=== PATIENT | female | born 1985 | race Caucasian/White ===

== ENCOUNTER 2017-07-13 14:43 | Emergency (ER) | payer OTHER ==
[~2017-07-13] VITALS: Ht 167.6 cm; Wt 84.8 kg
[~2017-07-13 14:43] MED LIST: ANAPROX DS550 MG PO; BACTRIM DS 8001 TA1 PO; Bactrim Ds 8001 TAB PO; CIPRO250 MG PO; DIFLUCAN150 MG PO; FLEXERIL10 MG PO; KEFLEX500 MG PO; LOMOTIL 0.025 M1 TA1 PO; MOTRIN800 MG PO; NORCO 325 MG-51 TAB PO; PEPTO-BISM262 MG/11 PO; PYRIDIUM200 M1 PO; PYRIDIUM200 MG PO; VICODIN 500 MG-1 TAB PO; XANAX0.5 MG PO; ZOFRAN ODT4 MG PO; ZOFRAN ODT4 MG SL; ZOLOFT100 MG PO
[2017-07-13 15:14] LABS: BILIRUBIN NEGATIVE (NEGATIVE); BLOOD 1+ (NEGATIVE); CLARITY SL CLOUDY (CLEAR); COLOR YELLOW (YELLOW); GLUCOSE NEGATIVE (NEGATIVE); KETONE NEGATIVE (NEGATIVE); LEUKO ESTERASE NEGATIVE (NEGATIVE); NITRITE NEGATIVE (NEGATIVE); PH 5.5 (5.0-9.0); SPECIFIC GRAVITY 1.025 (1.005-1.030); UROBILINOGEN 0.2 E.U./dl (0.2-1.0)
[2017-07-13 15:27] LABS: BACTERIA 1+; MUCOUS 2+
[2017-07-13 15:51] LABS: BASO # 0.1 10*3/uL (0.0-0.1); BASO % 0.8 % (0.0-1.0); EOS # 0.3 10*3/uL (0.0-0.4); EOS % 3.5 % (1.0-4.0); HEMOGLOBIN 12.4 g/dl (12.0-16.0); LYMPH # 1.9 10*3/uL (1.3-4.4); LYMPH % 26.1 % (27.0-41.0); MEAN CELL VOLUME 86.4 fl (81.0-99.0); MEAN CORPUSCULAR HGB CONC 33.5 g/dl (33.0-37.0); MEAN PLATELET VOLUME 10.6 fl (9.6-12.3); MONO # 0.5 10*3/uL (0.1-1.0); MONO % 6.3 % (3.0-9.0); NEUT # 4.7 10*3/uL (2.3-7.9); PLATELET COUNT AUTOMATED 258 10*3/uL (130-400); RED BLOOD COUNT 4.28 10*6/uL (4.10-5.10); RED CELL DISTRI WIDTH 12.6 % (0-14.5); WHITE BLOOD COUNT 7.4 10*3/uL (4.8-10.8)
[2017-07-13 16:02] LABS: ALBUMIN 3.9 gm/dl (3.1-4.5); ALKALINE PHOSPHATASE 54 U/L (45-117); BUN 5 mg/dl (7-24); CHLORIDE 106 mmol/L (98-107); CREATININE 0.67 mg/dL (0.55-1.02); LIPASE 145 U/L (73-393); POTASSIUM 3.9 mmol/L (3.5-5.1); SGOT/AST 16 IU/L (3-35); SGPT/ALT 17 U/L (12-78); SODIUM 139 mmol/L (136-145); TOTAL PROTEIN 7.4 gm/dL (6.4-8.2)
[2017-07-13 18:12] VITALS: BP 110/70
[2017-07-13] MEDS ORDERED: PROTONIX40 MG PO (18:16)
== END 2017-07-13 18:23 | disposition home or self-care (01) ==
LOC: ED 14:43
PROVIDERS: Emergency Medicine; Nurse Practitioner Family
DX: K29.00 Acute gastritis without bleeding (principal); Z90.49 Acquired absence of other specified parts of digestive tract

== ENCOUNTER → 2017-07-22 | Outpatient (CLI) | payer OTHER ==
[~2017-07-22] MED LIST changes: +PROTONIX40 MG PO
== END | disposition home or self-care (01) ==
LOC: RAD 16:19
DX: J40 Bronchitis, not specified as acute or chronic (principal)

== ENCOUNTER 2017-08-31 23:56 | Emergency (ER) | payer OTHER ==
[~2017-08-31] VITALS: Ht 165.1 cm; Wt 86.2 kg
[2017-09-01 00:04] VITALS: BP 137/97
[2017-09-01 00:43] LABS: BASO # 0.1 10*3/uL (0.0-0.1); BASO % 0.9 % (0.0-1.0); EOS # 0.5 10*3/uL (0.0-0.4); HEMATOCRIT 36.9 % (37.0-47.0); HEMOGLOBIN 12.2 g/dl (12.0-16.0); LYMPH # 2.6 10*3/uL (1.3-4.4); LYMPH % 28.9 % (27.0-41.0); MEAN CELL VOLUME 84.6 fl (81.0-99.0); MEAN CORPUSCULAR HGB CONC 33.1 g/dl (33.0-37.0); MEAN PLATELET VOLUME 10.8 fl (9.6-12.3); MONO # 0.6 10*3/uL (0.1-1.0); MONO % 7.2 % (3.0-9.0); NEUT # 5.2 10*3/uL (2.3-7.9); NEUT % 57.7 % (47.0-73.0); PLATELET COUNT AUTOMATED 298 10*3/uL (130-400); RED BLOOD COUNT 4.36 10*6/uL (4.10-5.10); RED CELL DISTRI WIDTH 12.8 % (0-14.5); WHITE BLOOD COUNT 8.9 10*3/uL (4.8-10.8)
[2017-09-01 00:57] LABS: BUN 11 mg/dl (7-24); CHLORIDE 108 mmol/L (98-107); CREATININE 0.73 mg/dL (0.55-1.02); POTASSIUM 3.7 mmol/L (3.5-5.1); SODIUM 142 mmol/L (136-145)
[2017-09-01] MEDS ORDERED: ZITHROMAX250 MG PO (01:42)
[2017-09-01] MEDS ORDERED: ROBITUSSIN DM 105 ML PO (01:42)
[2017-09-01] MEDS ORDERED: PREDNISONE10 MG PO (01:42)
[2017-09-01] MEDS ORDERED: PROAIR HFA8.5 GM INH (01:42)
== END 2017-09-01 02:06 | disposition home or self-care (01) ==
LOC: ED 23:56
PROVIDERS: Emergency Medicine Emergency Medical Services
DX: J20.9 Acute bronchitis, unspecified (principal); Z79.899 Other long term (current) drug therapy

== ENCOUNTER → 2018-06-08 | Outpatient (CLI) | payer OTHER ==
[~2018-06-08] MED LIST changes: +AMINOPHYLLIN200 MG PO; +AUGMENTIN 875875 MG PO; +BELVIQ10 M1 PO; +CLARITIN5 MG/5 ML PO; +DIPHENHYDRAMINE50 M1 PO; +Motrin,Rufen800 MG PO; +POLYTRIM 1000010 M1 OPH; +PREDNISONE10 MG PO; +PROAIR HFA8.5 GM INH; +PSEUDOEPHEDRINE60 MG PO; +ROBITUSSIN DM 105 ML PO; +ZITHROMAX250 MG PO; +ZYRTEC10 MG PO
== END | disposition home or self-care (01) ==
LOC: RAD 08:00 → US 09:30 → RAD 11:44
DX: K44.9 Diaphragmatic hernia without obstruction or gangrene (principal); R13.12 Dysphagia, oropharyngeal phase; J98.4 Other disorders of lung; E04.1 Nontoxic single thyroid nodule

== ENCOUNTER 2018-06-09 08:19 | Emergency (ER) | payer OTHER ==
[~2018-06-09] VITALS: Ht 165.1 cm; Wt 88.5 kg
[~2018-06-09 08:19] MED LIST changes: -AMINOPHYLLIN200 MG PO; -AUGMENTIN 875875 MG PO; -BELVIQ10 M1 PO; -CLARITIN5 MG/5 ML PO; -DIPHENHYDRAMINE50 M1 PO; -Motrin,Rufen800 MG PO; -POLYTRIM 1000010 M1 OPH; -PSEUDOEPHEDRINE60 MG PO; -ZYRTEC10 MG PO
[2018-06-09 08:21] VITALS: BP 139/89
[2018-06-09] MEDS ORDERED: DIPHENHYDRAMINE50 M1 PO (08:39)
[2018-08-28] MEDS ORDERED: AMINOPHYLLIN200 MG PO (17:08)
== END 2018-06-09 08:42 | disposition home or self-care (01) ==
LOC: ED 08:19
DX: T63.481A Toxic effect of venom of other arthropod, accidental (unintentional), initial encounter (principal); R51 Headache; R11.0 Nausea; Z90.49 Acquired absence of other specified parts of digestive tract; Z79.899 Other long term (current) drug therapy; Y92.89 Other specified places as the place of occurrence of the external cause

== ENCOUNTER 2018-07-08 04:31 | Emergency (ER) | payer OTHER ==
[~2018-07-08] VITALS: Ht 165.1 cm; Wt 89.4 kg
[2018-07-08 04:31] VITALS: BP 115/67
[~2018-07-08 04:31] MED LIST changes: +DIPHENHYDRAMINE50 M1 PO
[2018-07-08] MEDS ORDERED: CLARITIN5 MG/5 ML PO (04:55)
[2018-07-08] MEDS ORDERED: BELVIQ10 M1 PO (04:57)
[2018-07-08] MEDS ORDERED: AUGMENTIN 875875 MG PO (05:30)
[2018-07-08] MEDS ORDERED: Motrin,Rufen800 MG PO (05:31)
[2018-07-08] MEDS ORDERED: ZYRTEC10 MG PO (05:31)
[2018-07-08] MEDS ORDERED: PSEUDOEPHEDRINE60 MG PO (05:32)
[2018-08-28] MEDS ORDERED: AMINOPHYLLIN200 MG PO (17:08)
== END 2018-07-08 05:53 | disposition home or self-care (01) ==
LOC: ED 04:31
DX: H65.02 Acute serous otitis media, left ear (principal); J02.9 Acute pharyngitis, unspecified; J01.00 Acute maxillary sinusitis, unspecified; Z79.899 Other long term (current) drug therapy

== ENCOUNTER 2018-09-23 07:37 | Emergency (ER) | payer OTHER ==
[~2018-09-23] VITALS: Ht 165.1 cm; Wt 86.2 kg
[~2018-09-23 07:37] MED LIST changes: +AMINOPHYLLIN200 MG PO; +AUGMENTIN 875875 MG PO; +BELVIQ10 M1 PO; +CLARITIN5 MG/5 ML PO; +Motrin,Rufen800 MG PO; +PSEUDOEPHEDRINE60 MG PO; +ZYRTEC10 MG PO
[2018-09-23 07:38] VITALS: BP 117/77
[2018-09-23] MEDS ORDERED: POLYTRIM 1000010 M1 OPH (08:58)
== END 2018-09-23 09:01 | disposition home or self-care (01) ==
LOC: ED 07:37
DX: H10.31 Unspecified acute conjunctivitis, right eye (principal); Z79.2 Long term (current) use of antibiotics; Z79.899 Other long term (current) drug therapy; Z90.49 Acquired absence of other specified parts of digestive tract

== ENCOUNTER 2018-11-07 20:38 | Emergency (ER) | payer OTHER ==
[~2018-11-07] VITALS: Ht 167.6 cm; Wt 86.2 kg
[~2018-11-07 20:38] MED LIST changes: +POLYTRIM 1000010 M1 OPH
[2018-11-07 20:39] VITALS: BP 126/87
[2018-11-07 20:55] LABS: BILIRUBIN NEGATIVE (NEGATIVE); BLOOD 3+ (NEGATIVE); CLARITY CLOUDY (CLEAR); COLOR YELLOW (YELLOW); GLUCOSE NEGATIVE (NEGATIVE); KETONE NEGATIVE (NEGATIVE); LEUKO ESTERASE 2+ (NEGATIVE); NITRITE POSITIVE (NEGATIVE); SPECIFIC GRAVITY 1.015 (1.005-1.030); UROBILINOGEN 0.2 E.U./dl (0.2-1.0)
[2018-11-07 21:05] LABS: WBC TNTC wbc/hpf (0-5)
[2018-11-07] MEDS ORDERED: SEPTDS PO (21:11)
[2018-11-07] MEDS ORDERED: PYRIDIUM100 MG PO (21:11)
== END 2018-11-07 21:39 | disposition home or self-care (01) ==
LOC: ED 20:38
PROVIDERS: Student in an Organized Health Care Education/Training Program
DX: N39.0 Urinary tract infection, site not specified (principal); Z79.2 Long term (current) use of antibiotics; Z79.899 Other long term (current) drug therapy; Z90.49 Acquired absence of other specified parts of digestive tract

== ENCOUNTER 2019-05-05 18:04 | Emergency (ER) | payer OTHER ==
[~2019-05-05] VITALS: Ht 167.6 cm; Wt 86.2 kg
[~2019-05-05 18:04] MED LIST changes: +CIPRO500 MG PO; +PYRIDIUM100 MG PO; +SEPTDS PO
[2019-05-05 18:05] VITALS: BP 121/85
[2019-05-05 18:24] LABS: BILIRUBIN NEGATIVE (NEGATIVE); BLOOD NEGATIVE (NEGATIVE); CLARITY SL CLOUDY (CLEAR); COLOR YELLOW (YELLOW); GLUCOSE NEGATIVE (NEGATIVE); KETONE NEGATIVE (NEGATIVE); LEUKO ESTERASE 1+ (NEGATIVE); NITRITE NEGATIVE (NEGATIVE); SPECIFIC GRAVITY 1.015 (1.005-1.030)
[2019-05-05 18:54] LABS: EPITHELIAL CELLS 51-100
[2019-05-05 18:55] LABS: BACTERIA 1+
[2019-05-05] MEDS ORDERED: NAPROSYN500 MG PO (19:13)
== END 2019-05-05 19:21 | disposition home or self-care (01) ==
LOC: ED 18:04
PROVIDERS: Nurse Practitioner Family
DX: S39.012A Strain of muscle, fascia and tendon of lower back, initial encounter (principal); R11.0 Nausea; Z79.899 Other long term (current) drug therapy; Z90.49 Acquired absence of other specified parts of digestive tract; X58.XXXA Exposure to other specified factors, initial encounter; Y93.89 Activity, other specified; Y92.89 Other specified places as the place of occurrence of the external cause; Y99.8 Other external cause status

== ENCOUNTER 2020-06-27 07:30 | Emergency (ER) | payer OTHER ==
[~2020-06-27] VITALS: Ht 167.6 cm; Wt 88.0 kg
[~2020-06-27 07:30] MED LIST changes: +NAPROSYN500 MG PO
[2020-06-27 07:38] VITALS: BP 150/91
[2020-06-27] MEDS ORDERED: FLUOXETINE HCL40 MG PO (07:39)
[2020-06-27] MEDS ORDERED: HYDROXYZINE HCL25 MG PO (07:40)
[2020-06-27] MEDS ORDERED: OLANZAPINE5 MG PO (07:40)
[2020-06-27 09:12] LABS: BASO # 0.1 10*3/uL (0.0-0.1); EOS # 0.3 10*3/uL (0.0-0.4); HEMATOCRIT 39.6 % (37.0-47.0); LYMPH # 1.4 10*3/uL (1.3-4.4); MEAN CORPUSCULAR HGB 29.7 pg (27.0-31.0); MEAN CORPUSCULAR HGB CONC 33.3 g/dl (33.0-37.0); MEAN PLATELET VOLUME 10.7 fl (9.6-12.3); MONO # 0.4 10*3/uL (0.1-1.0); MONO % 6.3 % (3.0-9.0); NEUT # 4.5 10*3/uL (2.3-7.9); NEUT % 66.3 % (47.0-73.0); PLATELET COUNT AUTOMATED 264 10*3/uL (130-400); RED BLOOD COUNT 4.45 10*6/uL (4.10-5.10); RED CELL DISTRI WIDTH 12.1 % (0-14.5); WHITE BLOOD COUNT 6.8 10*3/uL (4.8-10.8)
[2020-06-27 09:29] LABS: ALBUMIN 3.6 gm/dl (3.1-4.5); ALKALINE PHOSPHATASE 64 U/L (45-117); BUN 9 mg/dl (7-24); CHLORIDE 110 mmol/L (98-107); CREATININE 0.62 mg/dL (0.55-1.02); LIPASE 149 U/L (73-393); POTASSIUM 3.8 mmol/L (3.5-5.1); SGOT/AST 12 IU/L (3-35); SGPT/ALT 20 U/L (12-78); SODIUM 140 mmol/L (136-145)
[2020-06-27 09:30] LABS: BETA-HCG, QUANT < 1.0 mIU/mL (1-3)
[2020-06-27] MEDS ORDERED: ZOFRAN4 MG PO (11:40)
== END 2020-06-27 11:43 | disposition home or self-care (01) ==
LOC: ED 07:30
PROVIDERS: Emergency Medicine
DX: B34.9 Viral infection, unspecified (principal); F41.9 Anxiety disorder, unspecified; F32.9 Major depressive disorder, single episode, unspecified; Z79.899 Other long term (current) drug therapy; Z20.828 Contact with and (suspected) exposure to other viral communicable diseases

== ENCOUNTER 2020-08-13 11:14 | Emergency (ER) | payer OTHER ==
[~2020-08-13 11:14] MED LIST changes: +FLUOXETINE HCL40 MG PO; +HYDROXYZINE HCL25 MG PO; +OLANZAPINE5 MG PO; +ZOFRAN4 MG PO
[2020-08-13 11:32] VITALS: BP 114/80
[2020-08-13 12:39] LABS: BASO # 0.1 10*3/uL (0.0-0.1); BASO % 0.8 % (0.0-1.0); EOS # 0.3 10*3/uL (0.0-0.4); EOS % 5.3 % (1.0-4.0); LYMPH # 1.7 10*3/uL (1.3-4.4); LYMPH % 27.4 % (27.0-41.0); MEAN CELL VOLUME 90.9 fl (81.0-99.0); MEAN CORPUSCULAR HGB 30.1 pg (27.0-31.0); MEAN CORPUSCULAR HGB CONC 33.2 g/dl (33.0-37.0); MEAN PLATELET VOLUME 10.6 fl (9.6-12.3); MONO # 0.4 10*3/uL (0.1-1.0); MONO % 6.3 % (3.0-9.0); NEUT # 3.6 10*3/uL (2.3-7.9); NEUT % 59.9 % (47.0-73.0); PLATELET COUNT AUTOMATED 237 10*3/uL (130-400); RED BLOOD COUNT 4.18 10*6/uL (4.10-5.10); RED CELL DISTRI WIDTH 12.4 % (0-14.5); WHITE BLOOD COUNT 6.1 10*3/uL (4.8-10.8)
[2020-08-13 12:50] LABS: ALBUMIN 3.5 gm/dl (3.1-4.5); ALKALINE PHOSPHATASE 60 U/L (45-117); BUN 9 mg/dl (7-24); CHLORIDE 109 mmol/L (98-107); CREATININE 0.71 mg/dL (0.55-1.02); POTASSIUM 3.4 mmol/L (3.5-5.1); SGOT/AST 17 IU/L (3-35); SGPT/ALT 16 U/L (12-78); SODIUM 140 mmol/L (136-145); TOTAL PROTEIN 6.7 gm/dL (6.4-8.2)
[2020-08-13 12:53] LABS: BETA-HCG, QUANT < 1.0 mIU/mL (1-3)
[2020-08-13 12:57] LABS: BILIRUBIN Negative (Negative); BLOOD Trace-Lysed (Negative); CLARITY Clear (Clear); COLOR Yellow (Yellow); GLUCOSE Negative (Negative); KETONE Negative (Negative); LEUKO ESTERASE 2+ (Negative); NITRITE Negative (Negative); PH 7.5 (4.5-8.0); UROBILINOGEN 0.2 E.U./dl (0.0-1.0)
[2020-08-13 13:07] LABS: BACTERIA 2+
[2020-08-13] MEDS ORDERED: ZOFRAN4 MG PO (13:50)
[2020-08-13] MEDS ORDERED: SEPTDS PO (13:50)
== END 2020-08-13 12:56 | disposition home or self-care (01) ==
LOC: ED 11:14
PROVIDERS: Emergency Medicine
DX: N39.0 Urinary tract infection, site not specified (principal); K29.70 Gastritis, unspecified, without bleeding; F32.9 Major depressive disorder, single episode, unspecified; F41.9 Anxiety disorder, unspecified; Z79.899 Other long term (current) drug therapy; Z90.49 Acquired absence of other specified parts of digestive tract

== ENCOUNTER 2020-09-09 09:47 | Emergency (ER) | payer OTHER ==
[~2020-09-09] VITALS: Wt 89.8 kg
[2020-09-09 09:51] VITALS: BP 122/79
[2020-09-09] MEDS ORDERED: PROVENTIL HFA6.7 GM INH (10:17)
[2020-09-09] MEDS ORDERED: PREDNISONE20 M1 PO (10:17)
== END 2020-09-09 11:38 | disposition home or self-care (01) ==
LOC: ED 09:47
DX: R06.02 Shortness of breath (principal); Z20.828 Contact with and (suspected) exposure to other viral communicable diseases; J02.9 Acute pharyngitis, unspecified; R19.7 Diarrhea, unspecified; R51.9 Headache, unspecified; Z79.899 Other long term (current) drug therapy

== ENCOUNTER → 2021-06-27 | Outpatient (CLI) | payer OTHER ==
[~2021-06-27] MED LIST changes: +PREDNISONE20 M1 PO; +PROVENTIL HFA6.7 GM INH
== END | disposition home or self-care (01) ==
LOC: COVID19 17:13
PROVIDERS: ATTEND Podiatrist Foot & Ankle Surgery
DX: Z11.52 Encounter for screening for COVID-19 (principal)

== ENCOUNTER → 2022-01-30 | Outpatient (CLI) | payer OTHER | END | disposition home or self-care (01) | LOC: RAD 11:53 | PROVIDERS: ATTEND Family Medicine | DX: R06.02 Shortness of breath (principal) ==

== ENCOUNTER 2022-02-07 14:50 | Emergency (ER) | payer OTHER ==
[~2022-02-07] VITALS: Ht 165.1 cm; Wt 98.4 kg
[2022-02-07 15:01] VITALS: BP 131/89
== END 2022-02-07 17:16 | disposition home or self-care (01) ==
LOC: ED 14:50
DX: S61.411A Laceration without foreign body of right hand, initial encounter (principal); Z79.899 Other long term (current) drug therapy; Z90.49 Acquired absence of other specified parts of digestive tract; W25.XXXA Contact with sharp glass, initial encounter; Y93.89 Activity, other specified; Y92.89 Other specified places as the place of occurrence of the external cause; Y99.8 Other external cause status

== ENCOUNTER 2023-09-29 03:09 | Emergency (ER) | payer OTHER ==
[~2023-09-29] VITALS: Ht 162.5 cm; Wt 94.3 kg
[2023-09-29 03:20] VITALS: BP 139/95
[2023-09-29 03:40] LABS: BASO # 0.1 10*3/uL (0.0-0.1); BASO % 0.9 % (0.0-1.0); EOS # 0.6 10*3/uL (0.0-0.4); EOS % 6.5 % (1.0-4.0); LYMPH # 2.2 10*3/uL (1.3-4.4); LYMPH % 24.9 % (27.0-41.0); MEAN CELL VOLUME 89.4 fl (81.0-99.0); MEAN CORPUSCULAR HGB 28.9 pg (27.0-31.0); MEAN CORPUSCULAR HGB CONC 32.3 g/dl (33.0-37.0); MEAN PLATELET VOLUME 10.2 fl (9.6-12.3); MONO # 0.6 10*3/uL (0.1-1.0); MONO % 6.5 % (3.0-9.0); NEUT # 5.3 10*3/uL (2.3-7.9); NEUT % 60.9 % (47.0-73.0); PLATELET COUNT AUTOMATED 313 10*3/uL (130-400); RED BLOOD COUNT 4.81 10*6/uL (4.10-5.10); RED CELL DISTRI WIDTH 12.4 % (0-14.5); WHITE BLOOD COUNT 8.8 10*3/uL (4.8-10.8)
[2023-09-29 04:08] LABS: ALKALINE PHOSPHATASE 71 U/L (46-116); BUN 8 mg/dl (9-23); CHLORIDE 107 mmol/L (98-107); LIPASE 44 U/L (12-53); POTASSIUM 3.8 mmol/L (3.4-5.1); SGPT/ALT 13 U/L (5-49); TOTAL PROTEIN 6.9 gm/dL (6.0-8.0)
[2023-09-29] MEDS ORDERED: PREDNISONE20 M1 PO (04:29)
[2023-09-29] MEDS ORDERED: AMOX-CLAV 875-1 EACH PO (04:29)
== END 2023-09-29 05:03 | disposition home or self-care (01) ==
LOC: ED 03:09
PROVIDERS: Internal Medicine
DX: J44.1 Chronic obstructive pulmonary disease with (acute) exacerbation (principal); F41.9 Anxiety disorder, unspecified; F32.A Depression, unspecified; Z88.8 Allergy status to other drugs, medicaments and biological substances; Z90.49 Acquired absence of other specified parts of digestive tract

== ENCOUNTER → 2023-10-28 | Outpatient (CLI) | payer OTHER ==
[~2023-10-28] MED LIST changes: +AMOX-CLAV 875-1 EACH PO
== END | disposition home or self-care (01) ==
LOC: CP 01:09
PROVIDERS: ATTEND Family Medicine
DX: R06.2 Wheezing (principal)

== ENCOUNTER → 2024-10-24 | Outpatient (CLI) | payer BC | END | disposition home or self-care (01) | LOC: MAMMO 10-18 10:30 | PROVIDERS: ATTEND Student in an Organized Health Care Education/Training Program | DX: Z12.31 Encounter for screening mammogram for malignant neoplasm of breast (principal) ==